=== PATIENT | female | born 1955 | race Caucasian/White ===

== ENCOUNTER → 2016-09-30 | Outpatient (CLI) | payer BC ==
[~2016-09-30] MED LIST: ASPIRIN E.C. 8181 MG PO; CALCIUM 600 W/V1 TAB PO; CHONDROITIN SU400 MG PO; GLUCOSAMINE500 MG PO; HYZAAR 25 MG-101 TAB PO; MSM500 MG PO; OMEGA-3 FISH1200 MG PO; ZOCOR 20MG20 MG PO
== END ==
LOC: SUN.DIA 09:00
DX: E11.65 Type 2 diabetes mellitus with hyperglycemia (principal); Z71.3 Dietary counseling and surveillance; E78.5 Hyperlipidemia, unspecified; I10 Essential (primary) hypertension
CPT/HCPCS: G0109

== ENCOUNTER → 2016-10-07 | Outpatient (CLI) | payer BC | LOC: SUN.DIA 09:00 | DX: E11.65 Type 2 diabetes mellitus with hyperglycemia (principal); Z71.3 Dietary counseling and surveillance; E78.5 Hyperlipidemia, unspecified; I10 Essential (primary) hypertension | CPT/HCPCS: G0109 ==

== ENCOUNTER → 2016-10-14 | Outpatient (CLI) | payer BC | LOC: SUN.DIA 09:00 | DX: E11.65 Type 2 diabetes mellitus with hyperglycemia (principal); Z71.3 Dietary counseling and surveillance; E78.5 Hyperlipidemia, unspecified; I10 Essential (primary) hypertension | CPT/HCPCS: G0109 ==

== ENCOUNTER → 2016-10-21 | Outpatient (CLI) | payer BC | LOC: MC.RAD 10-14 13:00 | DX: Z12.31 Encounter for screening mammogram for malignant neoplasm of breast (principal) ==

== ENCOUNTER → 2016-10-21 | Outpatient (CLI) | payer BC | LOC: SUN.DIA 09:00 | DX: E11.65 Type 2 diabetes mellitus with hyperglycemia (principal); Z71.3 Dietary counseling and surveillance; E78.5 Hyperlipidemia, unspecified; I10 Essential (primary) hypertension | CPT/HCPCS: G0109 ==

== ENCOUNTER → 2016-10-28 | Outpatient (CLI) | payer BC | LOC: SUN.DIA 10:05 | DX: E11.65 Type 2 diabetes mellitus with hyperglycemia (principal); Z71.3 Dietary counseling and surveillance; E78.5 Hyperlipidemia, unspecified; I10 Essential (primary) hypertension | CPT/HCPCS: G0108 ==

== ENCOUNTER → 2017-03-08 | Outpatient (CLI) | payer BC | LOC: SUN.DIA 03-07 10:31 | DX: E11.9 Type 2 diabetes mellitus without complications (principal); E78.5 Hyperlipidemia, unspecified; I10 Essential (primary) hypertension; Z68.30 Body mass index [BMI] 30.0-30.9, adult; Z71.3 Dietary counseling and surveillance | CPT/HCPCS: G0108 ==

== ENCOUNTER → 2017-06-16 | Outpatient (CLI) | payer BC | LOC: SUN.DIA 10:43 | DX: E11.9 Type 2 diabetes mellitus without complications (principal); E78.5 Hyperlipidemia, unspecified; I10 Essential (primary) hypertension; Z68.31 Body mass index [BMI] 31.0-31.9, adult; Z71.3 Dietary counseling and surveillance | CPT/HCPCS: G0108 ==

== ENCOUNTER → 2017-09-28 | Outpatient (CLI) | payer BC | LOC: SUN.DIA 09-15 11:53 | DX: E11.9 Type 2 diabetes mellitus without complications (principal); E78.5 Hyperlipidemia, unspecified; I10 Essential (primary) hypertension; Z68.31 Body mass index [BMI] 31.0-31.9, adult; Z71.3 Dietary counseling and surveillance | CPT/HCPCS: G0108 ==

== ENCOUNTER → 2017-11-16 | Outpatient (CLI) | payer BC | LOC: MC.RAD 11-10 10:40 | DX: Z12.31 Encounter for screening mammogram for malignant neoplasm of breast (principal) ==

== ENCOUNTER → 2018-04-18 | Outpatient (CLI) | payer BC | LOC: SUN.DIA 03-30 14:32 | DX: E11.9 Type 2 diabetes mellitus without complications (principal); E78.5 Hyperlipidemia, unspecified; I10 Essential (primary) hypertension; E66.9 Obesity, unspecified | CPT/HCPCS: G0108 ==

== ENCOUNTER → 2018-12-08 | Outpatient (CLI) | payer BC | LOC: MC.RAD 11-28 08:45 | DX: Z12.31 Encounter for screening mammogram for malignant neoplasm of breast (principal) ==

== ENCOUNTER → 2020-03-20 | Outpatient (CLI) | payer MEDICARE, OTHER | LOC: MC.RAD 07:45 | DX: Z12.31 Encounter for screening mammogram for malignant neoplasm of breast (principal) ==

== ENCOUNTER → 2021-04-20 | Outpatient (CLI) | payer MEDICARE, OTHER | LOC: MC.RAD 09:33 | DX: Z12.31 Encounter for screening mammogram for malignant neoplasm of breast (principal) ==

== ENCOUNTER → 2023-08-10 | Outpatient (CLI) | payer MEDICARE | LOC: MC.RAD 10:57 | DX: Z12.31 Encounter for screening mammogram for malignant neoplasm of breast (principal) ==